=== PATIENT | male | born 1985 | race Caucasian/White ===

== ENCOUNTER → 2021-07-31 | Day surgery (SDC) | payer OTHER ==
[~2021-07-31] VITALS: Ht 182.9 cm; Wt 95.5 kg
[2021-07-31 07:37] LABS: HCT 46.8 % (42.0-52.0); HGB 16.3 g/dl (13.2-18.0); MCH 31.1 pg (25.0-31.0); MCHC 34.8 g/dL (32.0-36.0); MCV 89.3 fL (78.0-100.0); MPV 10.5 fL (6.0-9.5); RBC 5.24 M/uL (4.70-6.00); RDW 12.2 % (11.5-14.0); WBC 5.7 K/uL (4.0-10.5)
[2021-07-31 07:55] LABS: ALBUMIN 4.6 g/dL (3.4-5.0); BILIRUBIN - TOTAL 1.3 mg/dL (0.2-1.0); GLOBULIN (CALCULATION) 2.9 g/dL; POTASSIUM 3.8 mmol/L (3.5-5.1); TOTAL PROTEIN 7.5 g/dL (6.4-8.2)
== END | disposition home or self-care (01) ==
LOC: FAS 06:56
PROVIDERS: Surgery
DX: Z12.11 Encounter for screening for malignant neoplasm of colon (principal); Z80.0 Family history of malignant neoplasm of digestive organs; Z86.010 Personal history of colon polyps
CPT/HCPCS: 36415; 80053; J2250; J7120